=== PATIENT | male | born 1945 | race Caucasian/White ===

== ENCOUNTER 2019-11-16 12:13 | Outpatient (CLI) | payer MEDICARE, SELFPAY ==
--- NOTE | ~2019-11-16 | US_ITS ---
EXAMINATION: US soft tissue head and neck EXAM DATE: 11/16/2019 12:54 INDICATION: Right lateral neck pain for 3 months. Tenderness. TECHNIQUE: Multiple grayscale and Doppler images of the symptomatic right neck region were obtained ( by a technologist who performed the scan) and subsequently reviewed. There is no prior study for poncho [place]. FINDINGS: Scanning in the region of concern demonstrates several lymph nodes, largest measuring 10 x 7 mm and 1 7 x 7 x 5 mm. No appreciable fatty hilum within these. These are borderline enlarged. IMPRESSION: 1. Borderline right neck lymphadenopathy; recommend neck CT with contrast. Reviewed, dictated and finalized at location A.
== END 2019-11-16 12:14 | disposition home or self-care (01) ==
LOC: ANHIMG 12:23
PROVIDERS: PCP Family Medicine; Visit Provider Physician Assistant
DX: M54.2 Cervicalgia (principal)
CPT/HCPCS: 76536

== ENCOUNTER 2019-11-27 08:04 | Outpatient (CLI) | payer MEDICARE, SELFPAY ==
--- NOTE | ~2019-11-27 | CT_ITS ---
EXAMINATION: CT soft tissue neck w con DATE: 11/27/2019 08:29 INDICATION: Right neck pain and lymphadenopathy. TECHNIQUE: Computed tomography (CT) of the neck was performed with 75 mL Omnipaque-350 intravenous co ntrast. Automated exposure control and iterative reconstruction technique were employed. The dose-sylvia gth product was 451.27 mGy-cm. COMPARISON: Ultrasound dated 11/16/2019 FINDINGS: Thyroid gland is unremarkable. Submandibular and parotid glands are symmetric. There are scattered normal-sized lymph nodes in the neck, no lymphadenopathy. No masses identified. Atherosclerotic calc ifications at the bilateral carotid bulbs with 10% stenosis on the right and 20% on the left. Visuali zed portions of the brain are normal. Changes of bilateral intraocular lens replacement. Mild mucosal thickening in the left maxillary sinus. Mastoid air cells and middle ear cavities are clear. Small a mount of bubbly mucus in the trachea. Mild emphysema. Paramediastinal scarring and suture line at the right upper lung consistent with prior partial nephrectomy for reported lung cancer. Small amount of fluid in the pericardial recess along the ascending thoracic aorta. Superior mediastinum is otherwis e unremarkable with no pathologically enlarged lymphadenopathy. Moderate to severe lower cervical spo ndylosis. No suspicious lytic or blastic bone lesions. IMPRESSION: 1. No abnormal masses or pathologically enlarged lymphadenopathy at the neck or visualized upper ches t. 2. Emphysema with postoperative change of prior partial right pneumonectomy for reported lung cancer. Reviewed, dictated and finalized at location A. IMPRESSION: 1. No abnormal masses or pathologically enlarged lymphadenopathy at the neck or visualized upper chest. 2. Emphysema with postoperative change of prior partial right pneumonectomy for reported lung cancer.
[2019-11-27 08:25] LABS: Estimated Glomerular Filt Rate > 60
== END 2019-11-27 08:05 | disposition home or self-care (01) ==
PROVIDERS: PCP Family Medicine; Visit Provider Physician Assistant
DX: M54.2 Cervicalgia (principal); L53.9 Erythematous condition, unspecified; Z87.891 Personal history of nicotine dependence; Z85.118 Personal history of other malignant neoplasm of bronchus and lung; Z90.2 Acquired absence of lung [part of]
CPT/HCPCS: 36415; 70491; Q9967

== ENCOUNTER 2020-10-01 14:48 | Outpatient (CLI) | payer MEDICARE, SELFPAY ==
[2020-10-01 16:01] LABS: Hemoglobin A1C 5.3 % (<5.7)
== END 2020-10-01 14:49 | disposition home or self-care (01) ==
LOC: ANHLAB 14:50
PROVIDERS: PCP Family Medicine; Visit Provider Family Medicine
DX: R73.01 Impaired fasting glucose (principal)
CPT/HCPCS: 36415; 83036

== ENCOUNTER 2021-11-10 10:48 | Outpatient (CLI) | payer MEDICARE, SELFPAY ==
--- NOTE | ~2021-11-10 | XR_ITS ---
XR chest 2V 11/10/2021 11:00 Indication: Shortness of breath Procedure: 2 view chest Comparison: No prior studies for comparison. Findings: There is airspace disease of the right mid and lower lung, consistent with pneumonia. Heart size normal. No significant effusion or pneumothorax. Impression: 1: Extensive airspace disease right mid and lower lung, compatible with pneumonia. Reviewed, dictated and finalized at location B. Impression: 1: Extensive airspace disease right mid and lower lung, compatible with pneumon ia.
[2021-11-10 11:17] LABS: Basophils Absolute Auto 0.1 K/mm3 (0.0-0.1); Basophils Percent Auto 0.4 % (0.2-1.2); Eosinophils Absolute Auto 0.2 K/mm3 (0-0.3); Eosinophils Percent Auto 1.1 % (0-4.4); Hemoglobin 13.4 g/dL (14.0-18.0); Immature Granulocyte Absolute 0.08 K/mm3 (0.00-0.031); Immature Granulocyte Percent A 0.6 % (0-0.5); Lymphocytes Absolute Auto 1.58 K/mm3 (0.9-3.2); Lymphocytes Percent Auto 11.1 % (18.3-44.2); Mean Corpuscular HGB Conc 32.7 g/dl (32-36); Mean Corpuscular Hemoglobin 29.9 pg (26-34); Mean Corpuscular Volume 91.5 fl (80-100); Mean Platelet Volume 8.8 fl (7.4-10.4); Monocytes Percent Auto 6.8 % (2.6-8.5); Neutrophils Absolute Auto 11.4 K/mm3 (1.3-6.7); Platelet Count Result 462 k/mm3 (150-375); Red Blood Count 4.48 M/mm3 (4.6-6.20); Red Cell Distribution Width 11.8 % (11.5-14.5); White Blood Count 14.2 K/mm3 (4.5-10.0)
[2021-11-10 11:28] LABS: Alanine Aminotransferase 19 U/L (4-50); Albumin Level 3.8 g/dL (3.5-5.1); Alkaline Phosphatase 75 U/L (38-126); Anion Gap 8 mmol/L (8-16); Aspartate Amino Transferase 25 U/L (17-59); Bilirubin,Total 0.4 mg/dL (0.2-1.3); Blood Urea Nitrogen 15 mg/dL (9-20); Calcium 8.8 mg/dL (8.4-10.2); Carbon Dioxide 28 mmol/L (22-30); Chloride 106 mmol/L (98-107); Estimated Glomerular Filt Rate > 60; Glucose 138 mg/dL (65-110); Potassium 3.8 mmol/L (3.4-5.0); Sodium 142 mmol/L (137-145)
== END 2021-11-10 10:49 | disposition home or self-care (01) ==
LOC: ANHIMG 10:50
PROVIDERS: PCP Family Medicine; Visit Provider Physician Assistant
DX: R00.0 Tachycardia, unspecified (principal); R06.02 Shortness of breath; R05.9 Cough, unspecified; R91.8 Other nonspecific abnormal finding of lung field
CPT/HCPCS: 36415; 71046; 80053; 84443; 85025

== ENCOUNTER 2022-04-27 08:57 | Outpatient (CLI) | payer MEDICARE, SELFPAY | END 2022-04-27 08:58 | disposition home or self-care (01) | LOC: ANHAUDIO 08:58 | PROVIDERS: PCP Family Medicine; Referring Provider Family Medicine; Visit Provider Family Medicine | DX: H91.90 Unspecified hearing loss, unspecified ear (principal) | CPT/HCPCS: 99199 ==

== ENCOUNTER 2022-10-03 12:53 | Emergency (ER) | payer MEDICARE, SELFPAY ==
--- NOTE | 2022-10-03 13:06 | ED.GENADULT ---
HPI - General Adult General Chief complaint: Upper Respiratory Infection Stated complaint: congestion Time Seen by Provider: 10/03/22 13:06 Source: patient Mode of arrival: ambulatory Limitations: no limitations History of Present Illness HPI narrative: 77-year-old male patient presents to the [facility] with complaints of congestion, body aches, chills that started last 24 hours ago. Any chest pain, shortness of breath. Denies ear pain or sore throat. Denies any abdominal pain, nausea, vomiting or diarrhea. patient states he is vaccinated against influenza and COVID. Related Data Home Medications Medication Instructions Recorded Confirmed aspirin 81 mg tablet,delayed 81 mg PO DAILY 09/18/19 10/03/22 release cholecalciferol (vitamin D3) 125 5,000 unit PO DAILY 09/18/19 10/03/22 mcg (5,000 unit) capsule mecobalamin (vitamin B12) 1,000 1,000 mcg sublingual DAILY 04/28/20 10/03/22 mcg disintegrating tablet,sublingual Allergies Allergy/AdvReac Type Severity Reaction Status Date / Time No Known Allergies Allergy Unknown NONE Verified 10/03/22 13:09 Review of Systems Review of Systems: CONSTITUTIONAL: Positive fever, chills, or sweats. EYES: Denies visual changes, redness, or discharge. ENT: Denies rhinorrhea, positive congestion, denies sore throat, or otalgia. CARDIOVASCULAR: Denies chest pain, palpitations, or edema. RESPIRATORY: Denies cough or dyspnea. GASTROINTESTINAL: Denies abdominal pain, nausea, vomiting, or diarrhea. GENITOURINARY: Denies dysuria or hematuria. SKIN: Denies rash or itching. MUSCULOSKELETAL: Denies back pain, joint pain, or myalgia. NEUROLOGIC: Denies headache, numbness, or weakness. PSYCHIATRIC: Denies anxiety or depression. [facility] Past Medical History Medical History (Updated 10/03/22 @ 13:35 by JARAD Davies) Enlarged lymph node History of lung cancer HLD (hyperlipidemia) HTN (hypertension), benign Neck pain on right side Social History Social History Smoking packs per day: 1 Smoking cigarettes per day: 20.0 Years smoked: 40 Smoking pack-years: 40.00 Smoking status: Former smoker Tobacco type: cigarettes and e-cigarettes/vaping Second hand tobacco smoke exposure: No Smoking end date: 08/29/13 Alcohol intake: never Substance use: never Substance use type: does not use Living arrangements: with family Occupation/Education: retired Gender identity (if verbalized by the patient): Male Sexual Orientation (if Verbalized by the Patient): Straight or Heterosexual Comments At the time of my signature I agree with nursing past medical history, surgical, social, and family history. There is no relevant family history pertinent to the presenting complaint. Exam Narrative: GENERAL: Well-appearing, well-nourished, and in no acute distress. HEAD: Normocephalic, atraumatic. EYES: PERRLA and EOMI. ENT: Nares clear, no rhinorrhea or epistaxis. Mucous membranes moist. posterior pharynx with no erythema, tonsillar edema, exudates or lesions present. Bilateral TMs are clear no erythema or foreign bodies to the canal. NECK: Supple. No lymphadenopathy CHEST: Clear to auscultation. No respiratory distress. HEART: Regular rate and rhythm. No murmur heard. Normal peripheral pulses. ABDOMEN: Soft, nontender, nondistended, normal active bowel sounds. EXTREMITIES: Normal range of motion. No edema. SKIN: Warm, dry, no rash. NEURO: No focal deficits. Alert and oriented x3. Course Course Level of Care: Express Care Visit Vital Signs Vital signs: Vital Signs Temperature 36.5 C 10/03/22 13:07 Pulse Rate 82 10/03/22 13:07 Respiratory Rate 18 10/03/22 13:07 Blood Pressure 142/81 H 10/03/22 13:07 Pulse Oximetry 97 10/03/22 13:07 Oxygen Delivery Room Air 10/03/22 13:07 Temperature 36.5 C 10/03/22 13:07 Pulse Rate 82 10/03/22 13:07 Respiratory Rate 18 10/03/22 13
[2022-10-03 13:07] VITALS: BP 142/81; PULSE 82; RESP 18; TEMP 36.5; O2SAT 97
== END 2022-10-03 13:42 | disposition home or self-care (01) ==
PROVIDERS: Emergency Provider Nurse Practitioner Family; PCP Family Medicine
DX: J06.9 Acute upper respiratory infection, unspecified (principal); R05.9 Cough, unspecified; Z20.822 Contact with and (suspected) exposure to COVID-19; E78.5 Hyperlipidemia, unspecified; I10 Essential (primary) hypertension; Z85.118 Personal history of other malignant neoplasm of bronchus and lung; Z79.82 Long term (current) use of aspirin
CPT/HCPCS: 87426; 87804; 99213; C9803; G0463